=== PATIENT | female | born 1945 | race Caucasian/White ===

== ENCOUNTER 2018-03-26 10:17 | Inpatient (IN) | payer MEDICARE ==
[~2018-03-26] VITALS: Ht 162.6 cm; Wt 82.9 kg
[2018-03-26] MEDS ORDERED: ONDANSETRON HCL 4 MG/2 ML VIAL ONE (10:42)
[2018-03-26] MEDS ORDERED: SODIUM CHLORIDE 0.9% 500ML 500 ML IV ONE (10:43)
[2018-03-26 10:48] LABS: APPEARANCE,URINE Clear (CLEAR); BASOPHILS % (AUTO) 0.5 % (0.0-5.0); BILIRUBIN,URINE Negative (NEGATIVE); COLOR,URINE Yellow (YELLOW); EOSINOPHILS % (AUTO) 0.5 % (0.0-8.0); GLUCOSE, URINE (UA) Negative (NEGATIVE); HEMATOCRIT 40.3 % (36-48); KETONES,URINE 40 mg/dL (NEGATIVE); LEUKOCYTE ESTERASE ,URINE Small (NEGATIVE); LYMPHOCYTES % (AUTO) 16.8 % (21.0-51.0); MEAN CORPUSCULAR HEMOGLOBIN 28.9 pg (27.0-33.0); MEAN CORPUSCULAR HGB CONC 35.9 g/dL (32.0-36.0); MEAN CORPUSCULAR VOLUME 80.6 fL (79-99); MONOCYTES % (AUTO) 10.2 % (3.0-13.0); NITRATE,URINE Negative (NEGATIVE); NUCLEATED RED BLOOD CELLS 0.2 % (0.0-0.19); OCCULT BLOOD,URINE Trace (NEGATIVE); PH,URINE 6.5 (5.0-8.0); PLATELET COUNT (AUTO) 331 K/uL (130-400); PROTEIN,URINE Negative (NEGATIVE); RED CELL DISTRIBUTION WIDTH 12.7 % (11.0-15.5); WHITE BLOOD COUNT (AUTO) 5.5 K/uL (4.8-10.8)
[2018-03-26 10:56] LABS: BACTERIA,URINE Rare /HPF (None Seen); RBC,URINE None Seen /HPF (0-1); SQUAMOUS EPITHELIAL CELL,UR Rare /HPF (0-2); WBC,URINE 0-1 /HPF (0-1)
[2018-03-26 11:00] LABS: ALBUMIN 4.8 g/dL (3.5-5.0); BILIRUBIN,DIRECT 0.2 mg/dL (0.0-0.3); BILIRUBIN,TOTAL 0.7 mg/dL (0.2-1.0); CREATININE 0.8 mg/dL (0.5-1.5); TOTAL PROTEIN, SERUM 8.3 g/dL (6.0-8.3)
[2018-03-26 11:04] LABS: POTASSIUM 2.8 mmol/L (3.5-5.1)
[2018-03-26] MEDS ORDERED: MAGNESIUM 2GM PREMIX 50ML 50 ML IV ONE (11:12)
[2018-03-26] MEDS ORDERED: SODIUM CHLORIDE 0.9% 1000ML 1,000 ML IV ONE (11:12)
[2018-03-26] MEDS ORDERED: POTASSIUM CHLORIDE 20MEQ/100ML 100 ML IV ONE (11:13)
[2018-03-26 11:23] LABS: INR 0.98 (0.85-1.15); PROTHROMBIN TIME 10.3 SEC (9.6-11.6)
[2018-03-26] MEDS ORDERED: LACTATED RINGERS 1000ML 1,000 ML IV SCH (12:40)
[2018-03-26] MEDS ORDERED: POTASSIUM CHLORIDE 10% ELIXIR 20 MEQ/15 ML UDCUP PO PRN (13:00)
[2018-03-26] MEDS ORDERED: POTASSIUM CHLORIDE 20 MEQ ERTAB PO PRN (13:00)
[2018-03-26] MEDS: SODIUM CHLORIDE 0.9% 1000ML 1,000 ML IV SCH ×2 (13:00→21:18)
[2018-03-26 14:20] VITALS: BP 134/64
[2018-03-26] MEDS ORDERED: AMLO10TA7 PO (14:20)
[2018-03-26] MEDS ORDERED: LOSA1TAB54 PO (14:20)
[2018-03-26] MEDS ORDERED: PRAV40TA3 PO (14:20)
[2018-03-26] MEDS ORDERED: ASPI-1197 PO (14:20)
[2018-03-26 16:31] VITALS: BP 113/63
[2018-03-26 19:14] VITALS: BP 143/70
[2018-03-26] MEDS: FAMOTIDINE/PF 20 MG/2 ML VIAL IV SCH (21:13)
[2018-03-26 23:22] VITALS: BP 138/54
[2018-03-27] VITALS (10 sets, daily range): BP systolic 110–138; BP diastolic 57–75
[2018-03-27] MEDS: POTASSIUM CHLORIDE 10MEQ/100ML 100 ML IV PRN ×2 (00:57→03:47)
[2018-03-27] MEDS: LIDOCAINE HCL-MPF 1% 2ML VIAL IVP PRN ×2 (00:57→03:50)
[2018-03-27 06:26] LABS: HEMATOCRIT 34.9 % (36-48); MEAN CORPUSCULAR HEMOGLOBIN 29.1 pg (27.0-33.0); MEAN CORPUSCULAR HGB CONC 36.1 g/dL (32.0-36.0); MEAN CORPUSCULAR VOLUME 80.6 fL (79-99); PLATELET COUNT (AUTO) 277 K/uL (130-400); RED BLOOD CELL COUNT(AUTO) 4.33 MIL/uL (4.00-5.50); RED CELL DISTRIBUTION WIDTH 12.9 % (11.0-15.5); WHITE BLOOD COUNT (AUTO) 3.9 K/uL (4.8-10.8)
[2018-03-27 06:49] LABS: ALBUMIN 3.8 g/dL (3.5-5.0); BILIRUBIN,TOTAL 0.6 mg/dL (0.2-1.0); CREATININE 0.6 mg/dL (0.5-1.5); MAGNESIUM 1.8 mg/dL (1.80-2.40); POTASSIUM 3.5 mmol/L (3.5-5.1); TOTAL PROTEIN, SERUM 6.7 g/dL (6.0-8.3)
[2018-03-27 08:39] LABS: BASOPHILS % (MANUAL) 1 % (0-2); LYMPHOCYTES % (MANUAL) 27 % (22-44); MAN.DIFF COMMENT-IMPRESSION MANUAL DIFFERENTIAL; MONOCYTES % (MANUAL) 9 % (2-9); PLATELET MORPHOLOGY COMMENT ADEQUATE; REACTIVE LYMPHOCYTES 1 % (0-0); SEGMENTED NEUTROPHILS % 62 % (40-70)
[2018-03-27] MEDS ORDERED: PANTOPRAZOLE 40 MG/VIAL IVP SCH (09:00)
[2018-03-27] MEDS: ENOXAPARIN SODIUM 40 MG/0.4 ML SYRINGE SQ SCH (09:00)
[2018-03-27] MEDS: FAMOTIDINE/PF 20 MG/2 ML VIAL IV SCH ×2 (09:17→21:33)
[2018-03-27] MEDS: SODIUM CHLORIDE 0.9% 1000ML 1,000 ML IV SCH ×2 (09:20→19:00)
[2018-03-27] MEDS: LOSARTAN/HYDROCHLOROTHIAZIDE 50-12.5MG TABLET PO SCH (10:00)
[2018-03-27] MEDS: AMLODIPINE BESYLATE 5 MG TAB PO SCH (10:00)
[2018-03-27] MEDS: ASPIRIN 81MG TAB.CHEW PO SCH (10:00)
[2018-03-27] MEDS ORDERED: FENTANYL CITRATE PF 50 MCG/1 ML 2ML VIAL ONE (11:23)
[2018-03-27] MEDS ORDERED: LIDOCAINE HCL 1% 20 ML VIAL ONE (11:23)
[2018-03-27] MEDS ORDERED: MIDAZOLAM HCL 1 MG/ML 2ML VIAL ONE (11:24)
--- NOTE | 2018-03-27 12:05 | NUR ---
U/S GD HEPATIC ABSCESS DRAINAGE CATHETER PLACEMENT PROCEDURE PERFORMED BY DR Yannick PARRISH. PUNCTURE SITE MID EPIGASTRIC BELOW THE STERNUM. 8FR APDL CATHETER INSERTED TO HEPATIC ABSCESS FLUID COLLECTION AND SECURED WITH STAY FIX DRESSING. CATHETER CONNECTED TO BENITO-CLOSE DRAINAGE BAG. SPECIMEN COLLECTED AND SENT TO LAB. REPORT GIVEN TO Dexter SMART RN AND PATIENT TRANSPORTED TO [facility] VIA BED AT 1205. PATIENT TOLERATED PROCEDURE WELL.
--- NOTE | 2018-03-27 15:10 | NUR ---
DCP CM met with pt discussed dc plans. Pt is independent prior to admission, lives at home with spouse, ho HERNANDEZ. Pt has a shower chair at home. Pt feels safe to go back home, still drives, spouse able to assist w/transportation and needs as necessary. Given community resources lists. DC plan to home once stable. CM to cont to follow up. Addendum: 03/27/18 at 1511 by DENISE NÚÑEZ LVN CM Amended: Links added.
--- NOTE | 2018-03-27 15:56 | NUR ---
Nutrition intervention: Nutrition notification for poor appetite x2 wks. Pt reports poor po intake because she was feeling sick. However today pt reports she has an appetite and wants to eat a cold turkey sandwich. 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 RD to provide protein supplement TID and monitor for diet advancement for added protein supplement. Recommendations: When medically feasible, advance diet to heart healthy as tolerated. Recommend PROMOD supplementation 30ml TID once diet advances. Addendum: 03/27/18 at [address] RD Amended: Links added.
[2018-03-27] MEDS: ATORVASTATIN CALCIUM 10 MG TABLET PO SCH (21:34)
[2018-03-28] VITALS (7 sets, daily range): BP systolic 118–149; BP diastolic 59–85
[2018-03-28] MEDS: FAMOTIDINE/PF 20 MG/2 ML VIAL IV SCH ×2 (09:48→20:56)
[2018-03-28] MEDS: ASPIRIN 81MG TAB.CHEW PO SCH (09:48)
[2018-03-28] MEDS: LOSARTAN/HYDROCHLOROTHIAZIDE 50-12.5MG TABLET PO SCH (09:48)
[2018-03-28] MEDS: AMLODIPINE BESYLATE 5 MG TAB PO SCH (09:49)
[2018-03-28] MEDS: SODIUM CHLORIDE 0.9% 1000ML 1,000 ML IV SCH ×2 (09:50→15:00)
[2018-03-28] MEDS: ENOXAPARIN SODIUM 40 MG/0.4 ML SYRINGE SQ SCH (09:50)
--- NOTE | 2018-03-28 17:30 | NUR ---
Peg with Dr. Osorio's office called to get report on pt. Provided information on labs and imaging results as well as the hepatic drain. States she will notify Dr. Osorio and call back.
[2018-03-28] MEDS: ATORVASTATIN CALCIUM 10 MG TABLET PO SCH (20:56)
[2018-03-29] MEDS: SODIUM CHLORIDE 0.9% 1000ML 1,000 ML IV SCH ×2 (01:47→09:19)
[2018-03-29 04:17] VITALS: BP 138/72
[2018-03-29 04:28] LABS: BASOPHILS % (AUTO) 1.3 % (0.0-5.0); EOSINOPHILS % (AUTO) 2.1 % (0.0-8.0); HEMATOCRIT 34.1 % (36-48); LYMPHOCYTES % (AUTO) 31.6 % (21.0-51.0); MEAN CORPUSCULAR HEMOGLOBIN 29.2 pg (27.0-33.0); MEAN CORPUSCULAR HGB CONC 36.6 g/dL (32.0-36.0); MEAN CORPUSCULAR VOLUME 79.7 fL (79-99); MONOCYTES % (AUTO) 9.9 % (3.0-13.0); NEUTROPHILS % (AUTO) 55.1 % (40.0-77.0); PLATELET COUNT (AUTO) 252 K/uL (130-400); RED BLOOD CELL COUNT(AUTO) 4.28 MIL/uL (4.00-5.50); RED CELL DISTRIBUTION WIDTH 12.8 % (11.0-15.5); WHITE BLOOD COUNT (AUTO) 4.2 K/uL (4.8-10.8)
[2018-03-29 04:47] LABS: ALBUMIN 3.8 g/dL (3.5-5.0); BILIRUBIN,DIRECT 0.2 mg/dL (0.0-0.3); BILIRUBIN,TOTAL 0.7 mg/dL (0.2-1.0); CREATININE 0.5 mg/dL (0.5-1.5); TOTAL PROTEIN, SERUM 6.7 g/dL (6.0-8.3)
[2018-03-29 04:53] LABS: POTASSIUM 2.7 mmol/L (3.5-5.1)
[2018-03-29] MEDS: POTASSIUM CHLORIDE 20 MEQ ERTAB PO PRN ×4 (05:41→18:47)
[2018-03-29] MEDS: POTASSIUM CHLORIDE 20MEQ/100ML 100 ML IV PRN ×2 (05:41→09:19)
[2018-03-29] MEDS: LIDOCAINE HCL-MPF 1% 2ML VIAL IVP PRN ×2 (05:41→09:20)
[2018-03-29] MEDS ORDERED: ONDANSETRON HCL 4 MG/2 ML VIAL ONE (08:12)
[2018-03-29] MEDS: FAMOTIDINE/PF 20 MG/2 ML VIAL IV SCH ×3 (08:26→20:30)
[2018-03-29] MEDS: ENOXAPARIN SODIUM 40 MG/0.4 ML SYRINGE SQ SCH (08:30)
[2018-03-29 09:07] VITALS: BP 154/75
[2018-03-29] MEDS: ASPIRIN 81MG TAB.CHEW PO SCH (09:12)
[2018-03-29] MEDS: LOSARTAN/HYDROCHLOROTHIAZIDE 50-12.5MG TABLET PO SCH (09:13)
[2018-03-29] MEDS: AMLODIPINE BESYLATE 5 MG TAB PO SCH (09:13)
[2018-03-29 11:34] VITALS: BP 152/78
[2018-03-29] MEDS ORDERED: PHARMACY COMMUNICATION MISC SCH (12:00)
[2018-03-29] MEDS ORDERED: D5 NS WITH 20 mEq KCl 1000ML IV SCH (12:15)
[2018-03-29] MEDS ORDERED: D5 NS WITH 20 mEq KCl 1000ML 1,000 ML IV SCH (13:00)
--- NOTE | 2018-03-29 13:20 | NUR ---
Nutrition f/u: Pt continues on clear liquid diet with no tolerance to diet. Pt states she dislikes the flavor of the broth and mont[place] ice she receives at every meal. As per pt's nurse, pt with positive H. pylori, possible reasons for her intolerance to diet, however treatment to begin. Recommendations: When medically feasible, advance diet therapy to Soft/bland as tolerated When diet advances, please provide ensure TID with meals for added caloric and protein intake. Consult MARY if additional nutrition concerns arise. Addendum: 03/30/18 at [address] Amended: Links added.
[2018-03-29 16:31] VITALS: BP 130/70
[2018-03-29] MEDS: D5 NS WITH 20 mEq KCl 1000ML 1,000 ML IV SCH (18:48)
[2018-03-29 20:00] VITALS: BP 138/76
[2018-03-29] MEDS: PANTOPRAZOLE SODIUM 40 MG TABLET.DR PO SCH (20:26)
[2018-03-29] MEDS: ATORVASTATIN CALCIUM 10 MG TABLET PO SCH (20:26)
[2018-03-29] MEDS: AMOXICILLIN 500 MG CAPSULE PO SCH (20:26)
[2018-03-29] MEDS: CLARITHROMYCIN 500 MG TABLET PO SCH (20:26)
[2018-03-29] MEDS: ONDANSETRON HCL 4 MG/2 ML VIAL IVP PRN (20:30)
[2018-03-30] VITALS: BP 132/71
[2018-03-30 04:00] VITALS: BP 114/53
[2018-03-30] MEDS ORDERED: NS-20 MEQ KCL 1000ML 1,000 ML IV ONE (04:02)
[2018-03-30 04:08] LABS: BASOPHILS % (AUTO) 0.6 % (0.0-5.0); EOSINOPHILS % (AUTO) 1.2 % (0.0-8.0); HEMATOCRIT 33.2 % (36-48); LYMPHOCYTES % (AUTO) 28.8 % (21.0-51.0); MEAN CORPUSCULAR HEMOGLOBIN 29.2 pg (27.0-33.0); MEAN CORPUSCULAR HGB CONC 37.2 g/dL (32.0-36.0); MEAN CORPUSCULAR VOLUME 78.6 fL (79-99); MONOCYTES % (AUTO) 9.7 % (3.0-13.0); NEUTROPHILS % (AUTO) 59.7 % (40.0-77.0); NUCLEATED RED BLOOD CELLS 0.2 % (0.0-0.19); PLATELET COUNT (AUTO) 259 K/uL (130-400); RED BLOOD CELL COUNT(AUTO) 4.22 MIL/uL (4.00-5.50); RED CELL DISTRIBUTION WIDTH 13.1 % (11.0-15.5)
[2018-03-30] MEDS ORDERED: PHARMACY COMMUNICATION MISC SCH (04:15)
[2018-03-30 04:19] LABS: CREATININE 0.6 mg/dL (0.5-1.5); MAGNESIUM 1.4 mg/dL (1.80-2.40); POTASSIUM 3.5 mmol/L (3.5-5.1)
[2018-03-30] MEDS: POTASSIUM CHLORIDE 20 MEQ ERTAB PO PRN ×2 (06:09→09:50)
[2018-03-30 08:17] VITALS: BP 137/63
[2018-03-30] MEDS: AMLODIPINE BESYLATE 5 MG TAB PO SCH (09:00)
[2018-03-30] MEDS: LOSARTAN/HYDROCHLOROTHIAZIDE 50-12.5MG TABLET PO SCH (09:00)
[2018-03-30] MEDS: FAMOTIDINE/PF 20 MG/2 ML VIAL IV SCH ×2 (09:00→20:31)
[2018-03-30] MEDS: AMOXICILLIN 500 MG CAPSULE PO SCH ×2 (09:48→20:25)
[2018-03-30] MEDS: PANTOPRAZOLE SODIUM 40 MG TABLET.DR PO SCH ×2 (09:49→20:25)
[2018-03-30] MEDS: ASPIRIN 81MG TAB.CHEW PO SCH (09:49)
[2018-03-30] MEDS: CLARITHROMYCIN 500 MG TABLET PO SCH ×2 (09:49→20:25)
[2018-03-30] MEDS: ONDANSETRON HCL 4 MG/2 ML VIAL IVP PRN (09:50)
[2018-03-30] MEDS: ENOXAPARIN SODIUM 40 MG/0.4 ML SYRINGE SQ SCH (10:07)
[2018-03-30 11:52] VITALS: BP 126/64
[2018-03-30] MEDS ORDERED: SODIUM CHLORIDE 0.9% 1000ML 1,000 ML IV SCH (12:45)
[2018-03-30 16:41] VITALS: BP 135/64
[2018-03-30] MEDS: METOCLOPRAMIDE 10 MG/2 ML VIAL IVP SCH (17:15)
[2018-03-30 20:00] VITALS: BP 122/65
[2018-03-30] MEDS: ATORVASTATIN CALCIUM 10 MG TABLET PO SCH (20:25)
[2018-03-31] VITALS (7 sets, daily range): BP systolic 127–149; BP diastolic 68–77
[2018-03-31] MEDS: D5 NS WITH 20 mEq KCl 1000ML 1,000 ML IV SCH ×2 (04:10→17:14)
[2018-03-31 04:36] LABS: BASOPHILS % (AUTO) 0.8 % (0.0-5.0); EOSINOPHILS % (AUTO) 1.2 % (0.0-8.0); HEMATOCRIT 31.3 % (36-48); LYMPHOCYTES % (AUTO) 19.7 % (21.0-51.0); MEAN CORPUSCULAR HEMOGLOBIN 29.3 pg (27.0-33.0); MEAN CORPUSCULAR HGB CONC 36.8 g/dL (32.0-36.0); MEAN CORPUSCULAR VOLUME 79.6 fL (79-99); MONOCYTES % (AUTO) 9.6 % (3.0-13.0); NEUTROPHILS % (AUTO) 68.7 % (40.0-77.0); NUCLEATED RED BLOOD CELLS 0.1 % (0.0-0.19); PLATELET COUNT (AUTO) 250 K/uL (130-400); RED BLOOD CELL COUNT(AUTO) 3.93 MIL/uL (4.00-5.50); WHITE BLOOD COUNT (AUTO) 4.3 K/uL (4.8-10.8)
[2018-03-31 04:46] LABS: CREATININE 0.6 mg/dL (0.5-1.5); MAGNESIUM 1.6 mg/dL (1.80-2.40); POTASSIUM 3.2 mmol/L (3.5-5.1)
[2018-03-31] MEDS: MAGNESIUM 2GM PREMIX 50ML 50 ML IV PRN (05:42)
[2018-03-31] MEDS: POTASSIUM CHLORIDE 20 MEQ ERTAB PO PRN ×2 (05:43→19:19)
[2018-03-31] MEDS ORDERED: DIATR MEGLU/DIATRIZOATE SODIUM 30 ML BOTTLE ONE (08:07)
[2018-03-31] MEDS: CLARITHROMYCIN 500 MG TABLET PO SCH ×2 (09:00→20:06)
[2018-03-31] MEDS: METOCLOPRAMIDE 10 MG/2 ML VIAL IVP SCH ×3 (09:00→17:07)
[2018-03-31] MEDS: AMLODIPINE BESYLATE 5 MG TAB PO SCH (09:00)
[2018-03-31] MEDS: AMOXICILLIN 500 MG CAPSULE PO SCH ×2 (09:00→20:06)
[2018-03-31] MEDS: FAMOTIDINE/PF 20 MG/2 ML VIAL IV SCH ×2 (09:01→19:39)
[2018-03-31] MEDS: LOSARTAN/HYDROCHLOROTHIAZIDE 50-12.5MG TABLET PO SCH (09:01)
[2018-03-31] MEDS: ASPIRIN 81MG TAB.CHEW PO SCH (10:53)
[2018-03-31] MEDS: PANTOPRAZOLE SODIUM 40 MG TABLET.DR PO SCH ×2 (10:53→20:06)
[2018-03-31] MEDS: ENOXAPARIN SODIUM 40 MG/0.4 ML SYRINGE SQ SCH (10:54)
--- NOTE | 2018-03-31 14:00 | NUR ---
PROCEDURE HOSPITALIST REQUESTED FOR HEPATIC DRAINAGE CATHETER REMOVED POST CT ABD/PELVIS. IMAGES REVIEWED BY DR Francisco Javier EASTON AND RECOMMENDS CATHETER TO BE LEFT IN PLACE. THERE IS A SIGNIFICANT AMOUNT OF FLUID SEEN ON CT TO LEAVE CATHETER IN PLACE. RECOMMENDATIONS REPORTED TO Emelina LEE RN
[2018-03-31] MEDS: POTASSIUM CHLORIDE 10% ELIXIR 20 MEQ/15 ML UDCUP PO PRN ×2 (17:08→19:16)
[2018-03-31] MEDS: ATORVASTATIN CALCIUM 10 MG TABLET PO SCH (20:06)
[2018-04-01] MEDS: D5 NS WITH 20 mEq KCl 1000ML 1,000 ML IV SCH ×2 (03:46→21:16)
[2018-04-01 03:50] VITALS: BP 130/64
[2018-04-01 04:52] LABS: HEMATOCRIT 33.4 % (36-48); MEAN CORPUSCULAR HEMOGLOBIN 29.1 pg (27.0-33.0); MEAN CORPUSCULAR HGB CONC 36.5 g/dL (32.0-36.0); MEAN CORPUSCULAR VOLUME 79.6 fL (79-99); PLATELET COUNT (AUTO) 230 K/uL (130-400); RED BLOOD CELL COUNT(AUTO) 4.19 MIL/uL (4.00-5.50); RED CELL DISTRIBUTION WIDTH 12.8 % (11.0-15.5); WHITE BLOOD COUNT (AUTO) 5.2 K/uL (4.8-10.8)
[2018-04-01 05:06] LABS: MAGNESIUM 1.7 mg/dL (1.80-2.40); POTASSIUM 3.4 mmol/L (3.5-5.1)
[2018-04-01] MEDS: POTASSIUM CHLORIDE 20 MEQ ERTAB PO PRN ×2 (05:54→09:12)
[2018-04-01] MEDS: MAGNESIUM 2GM PREMIX 50ML 50 ML IV PRN (05:55)
[2018-04-01 08:00] VITALS: BP 128/68
[2018-04-01] MEDS: FAMOTIDINE/PF 20 MG/2 ML VIAL IV SCH ×2 (09:11→21:15)
[2018-04-01] MEDS: METOCLOPRAMIDE 10 MG/2 ML VIAL IVP SCH ×3 (09:11→17:34)
[2018-04-01] MEDS: CLARITHROMYCIN 500 MG TABLET PO SCH ×2 (09:11→21:15)
[2018-04-01] MEDS: PANTOPRAZOLE SODIUM 40 MG TABLET.DR PO SCH ×2 (09:11→21:15)
[2018-04-01] MEDS: AMOXICILLIN 500 MG CAPSULE PO SCH ×2 (09:11→21:15)
[2018-04-01] MEDS: LOSARTAN/HYDROCHLOROTHIAZIDE 50-12.5MG TABLET PO SCH (09:11)
[2018-04-01] MEDS: AMLODIPINE BESYLATE 5 MG TAB PO SCH (09:12)
[2018-04-01] MEDS: ASPIRIN 81MG TAB.CHEW PO SCH (09:12)
[2018-04-01] MEDS: ENOXAPARIN SODIUM 40 MG/0.4 ML SYRINGE SQ SCH (09:13)
[2018-04-01 11:00] VITALS: BP 125/66
[2018-04-01] MEDS: DiphenhydrAMINE HCL 50 MG/ML VIAL IV SCH (14:41)
[2018-04-01 15:06] LABS: CREATININE 0.7 mg/dL (0.5-1.5); POTASSIUM 3.7 mmol/L (3.5-5.1)
[2018-04-01 16:00] VITALS: BP 140/72
[2018-04-01 19:20] VITALS: BP 126/61
[2018-04-01] MEDS: ATORVASTATIN CALCIUM 10 MG TABLET PO SCH (21:15)
[2018-04-01 23:10] VITALS: BP 122/72
[2018-04-02 03:20] VITALS: BP 122/61
[2018-04-02 05:03] LABS: EOSINOPHILS % (AUTO) 1.2 % (0.0-8.0); HEMATOCRIT 34.4 % (36-48); LYMPHOCYTES % (AUTO) 13.4 % (21.0-51.0); MEAN CORPUSCULAR HEMOGLOBIN 28.8 pg (27.0-33.0); MONOCYTES % (AUTO) 10.5 % (3.0-13.0); NEUTROPHILS % (AUTO) 73.9 % (40.0-77.0); PLATELET COUNT (AUTO) 211 K/uL (130-400)
[2018-04-02 05:22] LABS: LYMPHOCYTES % (MANUAL) 32 % (22-44); MAN.DIFF COMMENT-IMPRESSION MANUAL DIFFERENTIAL; MONOCYTES % (MANUAL) 8 % (2-9); PLATELET MORPHOLOGY COMMENT ADEQUATE; SEGMENTED NEUTROPHILS % 60 % (40-70)
[2018-04-02 05:26] LABS: CREATININE 0.6 mg/dL (0.5-1.5); MAGNESIUM 1.6 mg/dL (1.80-2.40); POTASSIUM 3.4 mmol/L (3.5-5.1); THYROID STIMULATING HORMONE 0.62 uIU/mL (0.36-3.74); URIC ACID 1.1 mg/dL (2.6-7.2)
[2018-04-02] MEDS: POTASSIUM CHLORIDE 20 MEQ ERTAB PO PRN ×2 (05:55→10:03)
[2018-04-02] MEDS: MAGNESIUM 2GM PREMIX 50ML 50 ML IV PRN (05:55)
[2018-04-02] MEDS: METOCLOPRAMIDE 10 MG/2 ML VIAL IVP SCH ×3 (06:44→16:58)
[2018-04-02 08:00] VITALS: BP 127/66
[2018-04-02] MEDS: CLARITHROMYCIN 500 MG TABLET PO SCH ×2 (10:03→20:53)
[2018-04-02] MEDS: ASPIRIN 81MG TAB.CHEW PO SCH (10:03)
[2018-04-02] MEDS: AMLODIPINE BESYLATE 5 MG TAB PO SCH (10:03)
[2018-04-02] MEDS: PANTOPRAZOLE SODIUM 40 MG TABLET.DR PO SCH ×2 (10:03→20:53)
[2018-04-02] MEDS: AMOXICILLIN 500 MG CAPSULE PO SCH ×2 (10:03→20:53)
[2018-04-02] MEDS: ENOXAPARIN SODIUM 40 MG/0.4 ML SYRINGE SQ SCH (10:04)
[2018-04-02] MEDS: FAMOTIDINE/PF 20 MG/2 ML VIAL IV SCH ×2 (10:04→20:53)
[2018-04-02] MEDS: CEFTRIAXONE SODIUM 2 GM VIAL IVP SCH (10:04)
[2018-04-02] MEDS: D5 NS WITH 20 mEq KCl 1000ML 1,000 ML IV SCH (10:07)
[2018-04-02 11:00] VITALS: BP 128/68
[2018-04-02] MEDS: DiphenhydrAMINE HCL 50 MG/ML VIAL IV SCH (14:30)
[2018-04-02 16:00] VITALS: BP 127/71
[2018-04-02] MEDS ORDERED: PEG 3350/NA SULF,BICARB,CL/KCL 4000 ML SOLN PO ONE (16:00)
[2018-04-02] MEDS ORDERED: NS-20 MEQ KCL 1000ML 1,000 ML IV SCH (16:00)
[2018-04-02 19:00] VITALS: BP 142/75
--- NOTE | 2018-04-02 19:06 | NUR ---
DR. LEE CALLED STATED DR. CHRISTIE WILL GO AHEAD AND DO THE PROCEDURE IF PT'S ELECTROLYTES ARE IMPROVED, OTHER LOPEZ ANESTHESIA WILL NOT WANT TO WILL CONVEY MESSAGES TO NIGHT NURSE
[2018-04-02] MEDS: ATORVASTATIN CALCIUM 10 MG TABLET PO SCH (20:53)
[2018-04-02 23:00] VITALS: BP 142/75
[2018-04-03 03:00] VITALS: BP 141/67
[2018-04-03 04:44] LABS: EOSINOPHILS % (AUTO) 1.5 % (0.0-8.0); HEMATOCRIT 37.2 % (36-48); LYMPHOCYTES % (AUTO) 18.7 % (21.0-51.0); MEAN CORPUSCULAR HEMOGLOBIN 28.7 pg (27.0-33.0); MEAN CORPUSCULAR HGB CONC 36.1 g/dL (32.0-36.0); MEAN CORPUSCULAR VOLUME 79.5 fL (79-99); MONOCYTES % (AUTO) 10.8 % (3.0-13.0); NUCLEATED RED BLOOD CELLS 0.1 % (0.0-0.19); PLATELET COUNT (AUTO) 238 K/uL (130-400); RED BLOOD CELL COUNT(AUTO) 4.68 MIL/uL (4.00-5.50); RED CELL DISTRIBUTION WIDTH 12.8 % (11.0-15.5); WHITE BLOOD COUNT (AUTO) 3.8 K/uL (4.8-10.8)
[2018-04-03 04:59] LABS: CREATININE 0.6 mg/dL (0.5-1.5); MAGNESIUM 1.8 mg/dL (1.80-2.40); POTASSIUM 3.3 mmol/L (3.5-5.1)
--- NOTE | 2018-04-03 06:00 | NUR ---
TO GI LAB PATIENT TRANSPORTED TO GI LAB VIA STRETCHER IN STABLE CONDITION.
--- NOTE | 2018-04-03 06:25 | NUR ---
BACK FROM GI LAB PATIENT WAS RETURNED FROM GI LAB. NO PROCEDURE DONE. ELECTROLYTES ARE ABNORMAL.
[2018-04-03] MEDS: METOCLOPRAMIDE 10 MG/2 ML VIAL IVP SCH ×3 (07:30→17:28)
[2018-04-03 07:58] VITALS: BP 147/73
[2018-04-03] MEDS: FAMOTIDINE/PF 20 MG/2 ML VIAL IV SCH ×2 (09:09→20:21)
[2018-04-03] MEDS: AMOXICILLIN 500 MG CAPSULE PO SCH ×2 (09:09→20:21)
[2018-04-03] MEDS: ENOXAPARIN SODIUM 40 MG/0.4 ML SYRINGE SQ SCH (09:09)
[2018-04-03] MEDS: PANTOPRAZOLE SODIUM 40 MG TABLET.DR PO SCH ×2 (09:10→20:21)
[2018-04-03] MEDS: CLARITHROMYCIN 500 MG TABLET PO SCH ×2 (09:10→20:21)
[2018-04-03] MEDS: AMLODIPINE BESYLATE 5 MG TAB PO SCH (09:11)
[2018-04-03] MEDS: ASPIRIN 81MG TAB.CHEW PO SCH (09:14)
[2018-04-03] MEDS: CEFTRIAXONE SODIUM 2 GM VIAL IVP SCH (09:14)
[2018-04-03 11:57] VITALS: BP 134/62
[2018-04-03] MEDS: DiphenhydrAMINE HCL 50 MG/ML VIAL IV SCH (14:30)
[2018-04-03] MEDS ORDERED: HYDROCORTISONE 1% 28.35 GM CREAM TP PRN (15:30)
[2018-04-03 16:59] VITALS: BP 126/62
[2018-04-03 19:38] VITALS: BP 128/72
[2018-04-03] MEDS: ATORVASTATIN CALCIUM 10 MG TABLET PO SCH (20:22)
[2018-04-03 23:27] VITALS: BP 131/69
[2018-04-04 03:42] VITALS: BP 132/72
[2018-04-04 05:10] LABS: BASOPHILS % (AUTO) 1.3 % (0.0-5.0); EOSINOPHILS % (AUTO) 8.1 % (0.0-8.0); HEMATOCRIT 36.6 % (36-48); MEAN CORPUSCULAR HEMOGLOBIN 28.8 pg (27.0-33.0); MEAN CORPUSCULAR HGB CONC 36.3 g/dL (32.0-36.0); MEAN CORPUSCULAR VOLUME 79.5 fL (79-99); MONOCYTES % (AUTO) 11.9 % (3.0-13.0); NEUTROPHILS % (AUTO) 61.7 % (40.0-77.0); PLATELET COUNT (AUTO) 265 K/uL (130-400); RED CELL DISTRIBUTION WIDTH 13.3 % (11.0-15.5); WHITE BLOOD COUNT (AUTO) 3.6 K/uL (4.8-10.8)
[2018-04-04 05:29] LABS: CREATININE 0.6 mg/dL (0.5-1.5)
[2018-04-04 05:30] LABS: POTASSIUM 2.8 mmol/L (3.5-5.1)
[2018-04-04] MEDS: POTASSIUM CHLORIDE 20 MEQ ERTAB PO PRN ×5 (06:03→15:01)
[2018-04-04 07:29] VITALS: BP 126/66
[2018-04-04] MEDS: FAMOTIDINE/PF 20 MG/2 ML VIAL IV SCH ×2 (09:00→22:17)
[2018-04-04] MEDS: CEFTRIAXONE SODIUM 2 GM VIAL IVP SCH (09:09)
[2018-04-04 11:14] VITALS: BP 126/59
[2018-04-04] MEDS: METOCLOPRAMIDE 10 MG/2 ML VIAL IVP SCH ×3 (11:30→17:45)
[2018-04-04] MEDS: DiphenhydrAMINE HCL 50 MG/ML VIAL IV SCH (11:57)
[2018-04-04] MEDS: ENOXAPARIN SODIUM 40 MG/0.4 ML SYRINGE SQ SCH (12:56)
[2018-04-04] MEDS: LIDOCAINE HCL-MPF 1% 2ML VIAL IVP PRN (12:58)
[2018-04-04] MEDS: CLARITHROMYCIN 500 MG TABLET PO SCH ×2 (12:58→22:17)
[2018-04-04] MEDS: POTASSIUM CHLORIDE 20MEQ/100ML 100 ML IV PRN (12:59)
[2018-04-04] MEDS: ASPIRIN 81MG TAB.CHEW PO SCH (12:59)
[2018-04-04] MEDS: PANTOPRAZOLE SODIUM 40 MG TABLET.DR PO SCH ×2 (12:59→22:17)
[2018-04-04] MEDS: AMOXICILLIN 500 MG CAPSULE PO SCH ×2 (12:59→22:17)
[2018-04-04] MEDS: AMLODIPINE BESYLATE 5 MG TAB PO SCH (13:00)
--- NOTE | 2018-04-04 15:00 | NUR ---
REQUEST FROM REQUESTING THAT CM HRELP FILL OUT A MEDICAL FORM THAT HELPS PTS BROTHER AND SISTER IN LAW CANCEL THEIR PLANE TRIP ON 04/16. CM DISCUSSED THE PURPOSE OF THE FORM ; IT DOES NOT APPLY AN DCM CANNOT FILL IT OUT PT STATES DOES NOT UNDERSTAND WHY BFAMILY WANTS TO CANCEL THEIR TRIP. STATES WELL THEY ARE COMING TO 'DO THINGS AND YOU ARE SICK". STATES I CAN AT LEAST BE AROUND WHILE THEY ARE HERE. CONFLICT SENSED BETWEEN PT AND SPOUSE. PT VERY SAD. WILL FOLLOW NEEDED Addendum: 04/04/18 at 1844 by LUKE PINEDA RN CM Amended: Links added.
[2018-04-04] MEDS: SODIUM CHLORIDE 1,000 MG TAB PO SCH ×2 (15:01→22:17)
--- NOTE | 2018-04-04 16:04 | NUR ---
Nutrition f/u: Pt continues with low electrolytes and on clear liquid diet. Pt with fluid restriction. Recommend gatorade at every meal for added electrolytes. Pt verbalize agreement. Pt aware of fluid restriction. LBM 04/02. Alb 3.83. Addendum: 04/04/18 at [address] Amended: Links added.
[2018-04-04 16:26] VITALS: BP 118/63
[2018-04-04 19:36] VITALS: BP 139/58
[2018-04-04] MEDS: ATORVASTATIN CALCIUM 10 MG TABLET PO SCH (22:17)
[2018-04-04 23:27] VITALS: BP 124/69
[2018-04-05 03:43] VITALS: BP 118/67
[2018-04-05 05:22] LABS: CREATININE,URINE RANDOM 44 mg/dL (30-135); SODIUM,URINE RANDOM 57 mmol/l (40-220)
[2018-04-05 06:39] LABS: BASOPHILS % (AUTO) 1.2 % (0.0-5.0); EOSINOPHILS % (AUTO) 9.5 % (0.0-8.0); HEMATOCRIT 40.8 % (36-48); LYMPHOCYTES % (AUTO) 20.3 % (21.0-51.0); MEAN CORPUSCULAR HEMOGLOBIN 28.9 pg (27.0-33.0); MEAN CORPUSCULAR HGB CONC 35.6 g/dL (32.0-36.0); MONOCYTES % (AUTO) 10.1 % (3.0-13.0); NEUTROPHILS % (AUTO) 58.9 % (40.0-77.0); NUCLEATED RED BLOOD CELLS 0.3 % (0.0-0.19); PLATELET COUNT (AUTO) 400 K/uL (130-400); RED BLOOD CELL COUNT(AUTO) 5.04 MIL/uL (4.00-5.50); WHITE BLOOD COUNT (AUTO) 6.2 K/uL (4.8-10.8)
[2018-04-05 06:50] LABS: CREATININE 0.9 mg/dL (0.5-1.5); MAGNESIUM 1.6 mg/dL (1.80-2.40); POTASSIUM 3.2 mmol/L (3.5-5.1); URIC ACID 2.4 mg/dL (2.6-7.2)
[2018-04-05 07:30] VITALS: BP 121/67
[2018-04-05] MEDS: METOCLOPRAMIDE 10 MG/2 ML VIAL IVP SCH ×3 (07:52→17:13)
[2018-04-05] MEDS: ENOXAPARIN SODIUM 40 MG/0.4 ML SYRINGE SQ SCH (09:15)
[2018-04-05] MEDS: AMLODIPINE BESYLATE 5 MG TAB PO SCH (09:15)
[2018-04-05] MEDS: FAMOTIDINE/PF 20 MG/2 ML VIAL IV SCH ×2 (09:16→19:49)
[2018-04-05] MEDS: PANTOPRAZOLE SODIUM 40 MG TABLET.DR PO SCH ×2 (09:16→19:49)
[2018-04-05] MEDS: CEFTRIAXONE SODIUM 2 GM VIAL IVP SCH (09:20)
[2018-04-05] MEDS: SODIUM CHLORIDE 1,000 MG TAB PO SCH ×2 (09:20→19:49)
[2018-04-05] MEDS: AMOXICILLIN 500 MG CAPSULE PO SCH ×2 (09:22→19:49)
[2018-04-05] MEDS: CLARITHROMYCIN 500 MG TABLET PO SCH ×2 (09:22→19:49)
[2018-04-05] MEDS: ASPIRIN 81MG TAB.CHEW PO SCH (09:28)
[2018-04-05] MEDS: DiphenhydrAMINE HCL 50 MG/ML VIAL IV SCH (09:30)
[2018-04-05 11:00] VITALS: BP 140/73
[2018-04-05 16:00] VITALS: BP 111/77
[2018-04-05] MEDS ORDERED: MAGNESIUM 2GM PREMIX 50ML 50 ML IV SCH (16:15)
[2018-04-05] MEDS: POTASSIUM CHLORIDE 20 MEQ ERTAB PO PRN (17:13)
[2018-04-05] MEDS: LIDOCAINE HCL-MPF 1% 2ML VIAL IVP PRN (18:48)
[2018-04-05] MEDS: POTASSIUM CHLORIDE 20MEQ/100ML 100 ML IV PRN (18:48)
[2018-04-05] MEDS: POTASSIUM CHLORIDE 10% ELIXIR 20 MEQ/15 ML UDCUP PO PRN (18:49)
[2018-04-05] MEDS: ATORVASTATIN CALCIUM 10 MG TABLET PO SCH (19:49)
[2018-04-05 20:04] VITALS: BP 123/72
[2018-04-06] VITALS: BP 118/62
[2018-04-06 04:00] VITALS: BP 108/68
[2018-04-06 04:15] LABS: HEMATOCRIT 37.7 % (36-48); MEAN CORPUSCULAR HEMOGLOBIN 28.9 pg (27.0-33.0); MEAN CORPUSCULAR HGB CONC 36.2 g/dL (32.0-36.0); MEAN CORPUSCULAR VOLUME 80.1 fL (79-99); PLATELET COUNT (AUTO) 384 K/uL (130-400); RED BLOOD CELL COUNT(AUTO) 4.71 MIL/uL (4.00-5.50); RED CELL DISTRIBUTION WIDTH 13.3 % (11.0-15.5); WHITE BLOOD COUNT (AUTO) 5.3 K/uL (4.8-10.8)
[2018-04-06 04:30] LABS: CREATININE 0.8 mg/dL (0.5-1.5); MAGNESIUM 1.8 mg/dL (1.80-2.40); POTASSIUM 3.6 mmol/L (3.5-5.1)
[2018-04-06] MEDS: POTASSIUM CHLORIDE 10% ELIXIR 20 MEQ/15 ML UDCUP PO PRN (06:38)
[2018-04-06 08:00] VITALS: BP 112/67
[2018-04-06] MEDS: AMOXICILLIN 500 MG CAPSULE PO SCH (08:33)
[2018-04-06] MEDS: FAMOTIDINE/PF 20 MG/2 ML VIAL IV SCH ×2 (08:33→19:58)
[2018-04-06] MEDS: METOCLOPRAMIDE 10 MG/2 ML VIAL IVP SCH ×3 (08:33→16:24)
[2018-04-06] MEDS: ASPIRIN 81MG TAB.CHEW PO SCH (08:34)
[2018-04-06] MEDS: PANTOPRAZOLE SODIUM 40 MG TABLET.DR PO SCH (08:34)
[2018-04-06] MEDS: AMLODIPINE BESYLATE 5 MG TAB PO SCH (08:34)
[2018-04-06] MEDS: CLARITHROMYCIN 500 MG TABLET PO SCH (08:34)
[2018-04-06] MEDS: SODIUM CHLORIDE 1,000 MG TAB PO SCH (10:36)
[2018-04-06] MEDS: CEFTRIAXONE SODIUM 2 GM VIAL IVP SCH (10:39)
[2018-04-06] MEDS: ENOXAPARIN SODIUM 40 MG/0.4 ML SYRINGE SQ SCH (10:39)
[2018-04-06 11:00] VITALS: BP 134/74
[2018-04-06] MEDS ORDERED: METHYLPREDNISOLONE SOD SUCC 40MG/ML 1ML IVP SCH (14:00)
[2018-04-06] MEDS: DiphenhydrAMINE HCL 50 MG/ML VIAL IV SCH (14:30)
[2018-04-06 16:00] VITALS: BP 102/66
[2018-04-06] MEDS ORDERED: HYDROXYZINE HCL 50 MG/ML VIAL IM PRN (19:00)
[2018-04-06] MEDS ORDERED: DIATR MEGLU/DIATRIZOATE SODIUM 30 ML BOTTLE ONE (19:33)
[2018-04-06 20:57] VITALS: BP 113/62
--- NOTE | 2018-04-06 21:30 | NUR ---
RADIOLOGY TO RADIOLOGY VIA W/C FOR CT OF ABDOMEN
--- NOTE | 2018-04-06 22:00 | NUR ---
RADIOLOGY BACK FROM RADIOLOGY , TOLERATED WELL ,
[2018-04-07] VITALS (7 sets, daily range): BP systolic 115–136; BP diastolic 62–86
[2018-04-07] MEDS: SODIUM CHLORIDE 1,000 MG TAB PO SCH ×3 (00:16→20:35)
[2018-04-07] MEDS: ATORVASTATIN CALCIUM 10 MG TABLET PO SCH ×2 (00:19→20:35)
[2018-04-07] MEDS: DiphenhydrAMINE HCL 50 MG/ML VIAL IV SCH (08:24)
[2018-04-07] MEDS: METOCLOPRAMIDE 10 MG/2 ML VIAL IVP SCH ×3 (10:27→18:15)
[2018-04-07] MEDS: FAMOTIDINE/PF 20 MG/2 ML VIAL IV SCH ×2 (10:28→20:35)
[2018-04-07] MEDS: POTASSIUM CHLORIDE 20 MEQ ERTAB PO PRN ×3 (10:29→18:16)
[2018-04-07] MEDS: ASPIRIN 81MG TAB.CHEW PO SCH (10:29)
[2018-04-07] MEDS: AMLODIPINE BESYLATE 5 MG TAB PO SCH (10:29)
[2018-04-07] MEDS: ENOXAPARIN SODIUM 40 MG/0.4 ML SYRINGE SQ SCH (10:30)
--- NOTE | 2018-04-07 13:00 | NUR ---
Nutrition Follow-up: pt. S/P CT of Abd.(04/06/18). Pt. on Full Liquid diet, 1200ml fluid Rest., Ensure clear TID. Pt. reports tolerating Full Liquid diet with good p.o. intake. Labs reviewed(Alb 3.8, Na 126, K 3.3). LBM: 04/07/18, per pt. SR- 1420, loose / abd. hepatic drain. Recommendations: 1) Rec. advance diet as tolerated to Soft [place] diet. 2) Rec. Ensure Clear QD with b'fast meal. 3) Continue to monitor pt's nutritional status. 4) RD to follow-up within 1-3 days. Addendum: 04/07/18 at [address] Amended: Links added.
[2018-04-07] MEDS ORDERED: PHARMACY COMMUNICATION MISC SCH (16:45)
--- NOTE | 2018-04-07 16:45 | NUR ---
HANNAH MERCHANT, [facility] MOULD [facility] AWARE OF CONSULT.
[2018-04-07] MEDS: AMILORIDE HCL 5 MG TABLET PO SCH (18:15)
[2018-04-08 03:37] VITALS: BP 117/59
[2018-04-08 04:23] LABS: HEMATOCRIT 33.9 % (36-48); MEAN CORPUSCULAR HEMOGLOBIN 28.8 pg (27.0-33.0); MEAN CORPUSCULAR HGB CONC 35.3 g/dL (32.0-36.0); MEAN CORPUSCULAR VOLUME 81.6 fL (79-99); PLATELET COUNT (AUTO) 315 K/uL (130-400); RED BLOOD CELL COUNT(AUTO) 4.16 MIL/uL (4.00-5.50); RED CELL DISTRIBUTION WIDTH 12.9 % (11.0-15.5); WHITE BLOOD COUNT (AUTO) 6.4 K/uL (4.8-10.8)
[2018-04-08 04:33] LABS: EOSINOPHILS % (MANUAL) 7 % (1-6); LYMPHOCYTES % (MANUAL) 12 % (22-44); MAN.DIFF COMMENT-IMPRESSION MANUAL DIFFERENTIAL; MONOCYTES % (MANUAL) 13 % (2-9); PLATELET MORPHOLOGY COMMENT ADEQUATE; SEGMENTED NEUTROPHILS % 68 % (40-70)
[2018-04-08 04:38] LABS: CREATININE 0.8 mg/dL (0.5-1.5); MAGNESIUM 1.9 mg/dL (1.80-2.40); POTASSIUM 3.7 mmol/L (3.5-5.1)
[2018-04-08] MEDS: METOCLOPRAMIDE 10 MG/2 ML VIAL IVP SCH ×3 (06:08→16:53)
[2018-04-08 07:43] VITALS: BP 122/71
[2018-04-08] MEDS: FAMOTIDINE/PF 20 MG/2 ML VIAL IV SCH ×2 (08:37→21:20)
[2018-04-08] MEDS: AMLODIPINE BESYLATE 5 MG TAB PO SCH (08:37)
[2018-04-08] MEDS: SODIUM CHLORIDE 1,000 MG TAB PO SCH ×2 (08:37→21:20)
[2018-04-08] MEDS: ASPIRIN 81MG TAB.CHEW PO SCH (08:37)
[2018-04-08] MEDS: ENOXAPARIN SODIUM 40 MG/0.4 ML SYRINGE SQ SCH (08:38)
[2018-04-08] MEDS: AMILORIDE HCL 5 MG TABLET PO SCH (08:40)
[2018-04-08 10:46] VITALS: BP 122/65
[2018-04-08 16:08] VITALS: BP 124/65
[2018-04-08 19:29] VITALS: BP 123/64
[2018-04-08] MEDS: ATORVASTATIN CALCIUM 10 MG TABLET PO SCH (21:20)
[2018-04-08 23:36] VITALS: BP 109/65
[2018-04-09] MEDS: HYDROXYZINE HCL 25 MG TABLET PO PRN ×2 (00:04→15:15)
[2018-04-09 03:19] VITALS: BP 114/63
[2018-04-09 05:44] LABS: BASOPHILS % (AUTO) 0.5 % (0.0-5.0); EOSINOPHILS % (AUTO) 8.2 % (0.0-8.0); HEMATOCRIT 35.8 % (36-48); LYMPHOCYTES % (AUTO) 15.1 % (21.0-51.0); MEAN CORPUSCULAR HEMOGLOBIN 28.9 pg (27.0-33.0); MEAN CORPUSCULAR HGB CONC 34.9 g/dL (32.0-36.0); MEAN CORPUSCULAR VOLUME 82.7 fL (79-99); NEUTROPHILS % (AUTO) 67.2 % (40.0-77.0); PLATELET COUNT (AUTO) 308 K/uL (130-400); RED BLOOD CELL COUNT(AUTO) 4.33 MIL/uL (4.00-5.50); RED CELL DISTRIBUTION WIDTH 13.4 % (11.0-15.5); WHITE BLOOD COUNT (AUTO) 7.1 K/uL (4.8-10.8)
[2018-04-09 05:56] LABS: CREATININE 0.7 mg/dL (0.5-1.5); POTASSIUM 3.9 mmol/L (3.5-5.1)
[2018-04-09] MEDS: METOCLOPRAMIDE 10 MG/2 ML VIAL IVP SCH ×3 (06:15→17:00)
[2018-04-09 07:30] VITALS: BP 136/48
[2018-04-09] MEDS: SODIUM CHLORIDE 1,000 MG TAB PO SCH ×2 (09:55→20:21)
[2018-04-09] MEDS: AMLODIPINE BESYLATE 5 MG TAB PO SCH (09:56)
[2018-04-09] MEDS: AMILORIDE HCL 5 MG TABLET PO SCH (09:57)
[2018-04-09] MEDS: FAMOTIDINE/PF 20 MG/2 ML VIAL IV SCH ×2 (09:58→19:43)
[2018-04-09] MEDS: ASPIRIN 81MG TAB.CHEW PO SCH (09:59)
[2018-04-09] MEDS: ENOXAPARIN SODIUM 40 MG/0.4 ML SYRINGE SQ SCH (09:59)
[2018-04-09 11:00] VITALS: BP 137/65
--- NOTE | 2018-04-09 11:30 | NUR ---
MED NON-ADMIN DID NOT ADMINISTER SCHEDULED REGLAN IV BECAUSE PATIENTS REPORTS TOLERATING SOFT DIET WELL AND NO NAUSEA OR VOMITING. PATIENT STATES SHE DOES NOT WANT REGLAN IF SHE HAS NO NAUSEA.
[2018-04-09 16:00] VITALS: BP 119/64
[2018-04-09 19:10] VITALS: BP 128/64
[2018-04-09] MEDS: ATORVASTATIN CALCIUM 10 MG TABLET PO SCH (19:43)
[2018-04-09 23:56] VITALS: BP 112/75
[2018-04-10] VITALS (10 sets, daily range): BP systolic 106–138; BP diastolic 54–74
[2018-04-10 05:41] LABS: BASOPHILS % (AUTO) 0.7 % (0.0-5.0); EOSINOPHILS % (AUTO) 4.7 % (0.0-8.0); HEMATOCRIT 35.8 % (36-48); LYMPHOCYTES % (AUTO) 12.8 % (21.0-51.0); MEAN CORPUSCULAR HEMOGLOBIN 28.9 pg (27.0-33.0); MEAN CORPUSCULAR VOLUME 82.5 fL (79-99); MONOCYTES % (AUTO) 8.4 % (3.0-13.0); NEUTROPHILS % (AUTO) 73.4 % (40.0-77.0); PLATELET COUNT (AUTO) 323 K/uL (130-400); RED BLOOD CELL COUNT(AUTO) 4.33 MIL/uL (4.00-5.50); RED CELL DISTRIBUTION WIDTH 13.5 % (11.0-15.5); WHITE BLOOD COUNT (AUTO) 7.3 K/uL (4.8-10.8)
[2018-04-10 05:45] LABS: CREATININE 0.8 mg/dL (0.5-1.5); POTASSIUM 4.1 mmol/L (3.5-5.1)
[2018-04-10 05:48] LABS: INR 0.97 (0.85-1.15); PARTIAL THROMBOPLASTIN TIME 28.5 SEC (26.3-35.5); PROTHROMBIN TIME 10.2 SEC (9.6-11.6)
[2018-04-10] MEDS: METOCLOPRAMIDE 10 MG/2 ML VIAL IVP SCH ×2 (08:49→11:30)
[2018-04-10] MEDS: FAMOTIDINE/PF 20 MG/2 ML VIAL IV SCH ×2 (08:49→22:38)
[2018-04-10] MEDS: ASPIRIN 81MG TAB.CHEW PO SCH (09:00)
[2018-04-10] MEDS: AMLODIPINE BESYLATE 5 MG TAB PO SCH (09:00)
[2018-04-10] MEDS: AMILORIDE HCL 5 MG TABLET PO SCH (09:00)
[2018-04-10] MEDS: ENOXAPARIN SODIUM 40 MG/0.4 ML SYRINGE SQ SCH (09:00)
--- NOTE | 2018-04-10 10:54 | NUR ---
PROCEDURE PATIENT SCHEDULED FOR IR EVALUATE OF DRAINAGE CATHETER FOR REMOVAL. DR Yannick PARRISH NOTIFIED AND ORDERED CT ABDOMEN WITHOUT CONTRAST. IMAGES TAKEN AND REVIEWED BY DR Yannick PARRISH. DRAINAGE CATHETER NOT A CANDIDATE FOR REMOVAL. RECOMMENDS AN ABSCESSOGRAM WITH CATHETER EXCHANGE. REPORT GIVEN TO Petr GARCIA RN BY Joanne SOTO RN
[2018-04-10] MEDS: SODIUM CHLORIDE 1,000 MG TAB PO SCH ×2 (12:59→22:38)
--- NOTE | 2018-04-10 15:00 | NUR ---
pt taken to laboratory sampler
[2018-04-10] MEDS ORDERED: IOHEXOL-350 50ML VIAL IV ONE (15:45)
[2018-04-10] MEDS ORDERED: LIDOCAINE HCL 1% MDV 50ML VIAL ONE (15:46)
[2018-04-10] MEDS ORDERED: PEG 3350/NA SULF,BICARB,CL/KCL 4000 ML SOLN PO SCH (17:00)
--- NOTE | 2018-04-10 17:30 | NUR ---
pt returned from biology laboratory assistant pt denies sob or chest pain vital signs in range will continue to monitor
[2018-04-10 19:17] LABS: EOSINOPHILS % (AUTO) 6.9 % (0.0-8.0); HEMATOCRIT 35.4 % (36-48); LYMPHOCYTES % (AUTO) 16.7 % (21.0-51.0); MEAN CORPUSCULAR HEMOGLOBIN 28.8 pg (27.0-33.0); MEAN CORPUSCULAR HGB CONC 34.3 g/dL (32.0-36.0); MEAN CORPUSCULAR VOLUME 83.9 fL (79-99); MONOCYTES % (AUTO) 9.4 % (3.0-13.0); PLATELET COUNT (AUTO) 337 K/uL (130-400); RED BLOOD CELL COUNT(AUTO) 4.22 MIL/uL (4.00-5.50); RED CELL DISTRIBUTION WIDTH 13.4 % (11.0-15.5)
[2018-04-10 19:20] LABS: POTASSIUM 3.7 mmol/L (3.5-5.1)
[2018-04-10 19:32] LABS: INR 0.99 (0.85-1.15); PROTHROMBIN TIME 10.4 SEC (9.6-11.6)
--- NOTE | 2018-04-10 21:00 | NUR ---
PT REFUSED PROCEDURE. PT DISCUSSED EGD/COLONOSCOPY PROCEDURE WITH DAUGHTER AND . PT AND FAMILY REFUSING EXAMS AT THIS TIME, ALL IN AGREEMENT THAT PT SHOULD WAIT AND HAVE THE EXAMS DONE VIA OUT-PATIENT AT DR. LEE OFFICE. MD CHRISTIE MADE AWARE, HOSPITALIST BLOCK HACKER ALSO UPDATED WITH PT POC.
[2018-04-10] MEDS: ATORVASTATIN CALCIUM 10 MG TABLET PO SCH (22:38)
[2018-04-11 04:10] VITALS: BP 122/56
[2018-04-11 04:56] LABS: BASOPHILS % (AUTO) 0.3 % (0.0-5.0); EOSINOPHILS % (AUTO) 5.7 % (0.0-8.0); HEMATOCRIT 36.4 % (36-48); MEAN CORPUSCULAR HEMOGLOBIN 29.3 pg (27.0-33.0); MEAN CORPUSCULAR HGB CONC 35.3 g/dL (32.0-36.0); NUCLEATED RED BLOOD CELLS 0.1 % (0.0-0.19); PLATELET COUNT (AUTO) 363 K/uL (130-400); RED BLOOD CELL COUNT(AUTO) 4.38 MIL/uL (4.00-5.50); RED CELL DISTRIBUTION WIDTH 13.4 % (11.0-15.5)
[2018-04-11 05:13] LABS: CREATININE 0.9 mg/dL (0.5-1.5)
[2018-04-11] MEDS: METOCLOPRAMIDE 10 MG/2 ML VIAL IVP SCH ×2 (06:58→11:30)
[2018-04-11 08:00] VITALS: BP 131/68
[2018-04-11] MEDS: ASPIRIN 81MG TAB.CHEW PO SCH (09:04)
[2018-04-11] MEDS: ENOXAPARIN SODIUM 40 MG/0.4 ML SYRINGE SQ SCH (09:04)
[2018-04-11] MEDS: AMILORIDE HCL 5 MG TABLET PO SCH (09:05)
[2018-04-11] MEDS: AMLODIPINE BESYLATE 5 MG TAB PO SCH (09:05)
[2018-04-11] MEDS: SODIUM CHLORIDE 1,000 MG TAB PO SCH (09:05)
[2018-04-11] MEDS: FAMOTIDINE/PF 20 MG/2 ML VIAL IV SCH (09:05)
[2018-04-11 11:57] VITALS: BP 112/72
--- NOTE | 2018-04-11 12:38 | NUR ---
SOFT DIET EDUCATION: PRINTED MATERIALS PROVIDED TO Pt ON N/V DIET THERAPY. Pt STATES SHE IS UNABLE TO SWALLOW MUCH FOODS D/T A SENSATION SHE GETS ON THE BACK OF HER MOUTH. Pt HAS BEEN ENCOURAGED TO FOLLOW A GI SOFT AND A MECHANICAL SOFT DIET AT HOME UNTIL HER FOLLOW UP APPOINTMENT OUTPATIENT. Pt'S WITH MULTIPLE QUESTIONS AND CONCERNS. RD ANSWERED ALL OF NUTRITIONAL QUESTIONS, HAVE BEEN ENCOURAGED TO ASK NURSING STAFF ALL MEDICAL QUESTIONS. ADDITIONAL VISITORS PRESENT AT BEDSIDE, Pt AND HAVE BEEN ENCOURAGED TO REQUEST NUTRITION CONSULT BEFORE DISCHARGE FOR ADDITIONAL NUTRITION QUESTIONS OR CONCERNS THEY MAY HAVE. Addendum: 04/11/18 at [address] RD Amended: Links added.
--- NOTE | 2018-04-11 12:48 | NUR ---
Nutrition f/u: Pt with diet advanced to soft diet. Pt reports fair po intake with fair tolerance. Pt reports a sensation at the back of her mouth that makes her vomit. Pt has been encouraged to try soft/moist textures that are low fat, low fiber to promote better tolerance. LBM 04/09-no concerns for constipation. Alb 3.8. Recommendations: continue current diet therapy. consult RD as additional nutrition concerns arise. Addendum: 04/11/18 at [address] Amended: Links added.
--- NOTE | 2018-04-11 14:30 | NUR ---
1430 EXTENSIVE D/C EDUCATION GIVEN WITH TEACH BACK TO PT, DAUGHTER, AND IV REMOVED, CATHETER INTACT RX GIVEN REFER TO D/C SUMMARY FOR FURTHER ORDERS
== END 2018-04-11 16:23 | disposition home or self-care (01) | DRG 442 ==
LOC: EDH 10:17 → EDHIP 12:40 → 4AH 14:23
PROVIDERS: ADMIT Family Medicine; ATTEND Family Medicine
PROC: 0F9230Z Drainage of Left Lobe Liver with Drainage Device, Percutaneous Approach (ICD-10-PCS; principal; 2018-03-27)
DX: K75.0 Abscess of liver (principal); E22.2 Syndrome of inappropriate secretion of antidiuretic hormone; Q44.6 Cystic disease of liver; K76.89 Other specified diseases of liver; I10 Essential (primary) hypertension; E78.5 Hyperlipidemia, unspecified; E87.6 Hypokalemia; R63.4 Abnormal weight loss; E66.9 Obesity, unspecified; B96.81 Helicobacter pylori [H. pylori] as the cause of diseases classified elsewhere; D72.819 Decreased white blood cell count, unspecified; E83.42 Hypomagnesemia; K57.30 Diverticulosis of large intestine without perforation or abscess without bleeding; K59.00 Constipation, unspecified; E78.00 Pure hypercholesterolemia, unspecified; R59.1 Generalized enlarged lymph nodes; N20.0 Calculus of kidney; Z68.31 Body mass index [BMI] 31.0-31.9, adult; Z74.01 Bed confinement status; Z98.1 Arthrodesis status; Z90.710 Acquired absence of both cervix and uterus; Z87.891 Personal history of nicotine dependence; Z82.3 Family history of stroke; Z83.6 Family history of other diseases of the respiratory system; Z82.49 Family history of ischemic heart disease and other diseases of the circulatory system; Z82.0 Family history of epilepsy and other diseases of the nervous system; Z83.2 Family history of diseases of the blood and blood-forming organs and certain disorders involving the immune mechanism
CPT/HCPCS: 10030; 36415; 49423; 49424; 71270; 74150; 74176; 74178; 75984; 76080; 76942; 80048; 80053; 80076; 81001; 82150; 82378; 82533; 82570; 83690; 83735; 83930; 83935; 84132; 84295; 84300; 84443; 84484; 84550; 85025; 85027; 85610; 85730; 86677; 87071; 87205; 93005; A4218; C1769; G0378; J0696; J1200; J1644; J1650; J2250; J2405; J2765; J2920; J3010; J3475; J3480; J3490; J7030; J7040; Q9963; Q9967

== ENCOUNTER 2018-04-15 10:49 | Emergency (ER) | payer MEDICARE ==
[~2018-04-15 10:49] MED LIST: AMLO10TA7 PO; ASPI-1197 PO; PRAV40TA3 PO
== END 2018-04-15 12:12 | disposition home or self-care (01) ==
LOC: EDH 10:49
DX: K91.89 Other postprocedural complications and disorders of digestive system (principal); I10 Essential (primary) hypertension; E78.00 Pure hypercholesterolemia, unspecified; Z90.710 Acquired absence of both cervix and uterus; Z98.890 Other specified postprocedural states; Z87.891 Personal history of nicotine dependence; Z88.2 Allergy status to sulfonamides; Z88.0 Allergy status to penicillin
CPT/HCPCS: 99281

== ENCOUNTER → 2018-05-02 | Outpatient (CLI) | payer MEDICARE | END | disposition home or self-care (01) | LOC: RAH 10:56 | PROVIDERS: ATTEND Family Medicine | DX: R91.1 Solitary pulmonary nodule (principal); R59.1 Generalized enlarged lymph nodes | CPT/HCPCS: 71046 ==

== ENCOUNTER → 2018-05-08 | Outpatient (CLI) | payer MEDICARE | END | disposition home or self-care (01) | LOC: RAH 10:06 | PROVIDERS: ATTEND Family Medicine | DX: K44.9 Diaphragmatic hernia without obstruction or gangrene (principal); K21.9 Gastro-esophageal reflux disease without esophagitis; K22.8 Other specified diseases of esophagus; R63.0 Anorexia | CPT/HCPCS: 74240 ==